=== PATIENT | female | born 1935 | race Caucasian/White ===

== ENCOUNTER → 2016-12-12 | Day surgery (SDC) | payer MEDICARE, OTHER ==
[~2016-12-12] MED LIST: Lactated Ringers 1,000 ML IV SCH; Lidocaine 1% 2 ML SDV ONE; Lidocaine 1%/Sod Bicarbonate in NS 8.4% 1 ML Syringe IV PRN; Propofol 200 MG/20 ML SDV ONE; Sodium Chloride 0.9% 10 ML Syringe FLUSH PRN
--- NOTE | 2016-12-12 11:24 | PCM.PREANE ---
Preanesthetic Assessment - ANESTHESIA/TRANSFUSION/FAMILY HX Anesthesia/Transfusion History: Prior Anesthesia (no prob), Prior Transfusion Family History of Anesthesia Reaction: No - REVIEW OF SYSTEMS Constitutional: Reports: no symptoms HAND ALTERATIONS TAILOR: Reports: no symptoms Respiratory: Reports: cough (due to phlegm) Cardiovascular: Reports: blood pressure problem, palpitations (on occasion- has been checked out) GI: Reports: no symptoms Other: Reports: sinus problem, neck pain (arthritis) - PHYSICAL ASSESSMENT O2 Sat by Pulse Oximetry: 98 RR: 16 Vital Signs: Last Vital Signs Temp 98.2 F 12/12/16 11:00 Pulse 63 12/12/16 11:00 Resp 16 12/12/16 11:00 BP 174/80 H 12/12/16 11:00 Pulse Ox 98 12/12/16 11:00 Height: 5 ft 3 in Weight: 51.71 kg NPO Status Date: 12/11/16 NPO Status Time: 18:00 ASA Class: 2 Mental Status: alert & oriented x3 Airway Class: Mallampati = 1 Dentition: Reports: normal dentition Thyro-Mental Finger Breadths: 3 Mouth Opening Finger Breadths: 3 ROM/Head Extension: full Respiratory Status: lungs clear to auscultation bilaterally Cardiovascular Status: regular rate & rhythm, normal S1, S2, no murmur, blood pressure WNL - ALLERGIES Allergies/Adverse Reactions: Allergies Allergy/AdvReac Type Severity Reaction Status Date / Time tramadol Allergy Severe Vomiting Verified 08/19/14 14:50 lisinopril Allergy Intermediate Cough Verified 08/19/14 14:50 - BLOOD Blood Available: No - ANESTHESIA PLAN Medication Ordered: Betablocker Preop Beta Deny: Yes Beta Deny: Metoprolol Beta-Deny Last Dose Date: 12/12/16 Beta-Deny Last Dose Time: 08:30 Anesthesia Type Planned: MAC - ACKNOWLEDGEMENTS Pt an appropriate candidate for the planned anesthesia: Yes Alternatives and risks of anesthesia discussed w pt/guardian: Yes Pt/Guardian understands and agree with anesthesia plan: Yes PreAnesthesia Questionnaire Cardiovascular History: Reports: High cholesterol, Hypertension, Other (see below) Other Cardiovascular History: palpitations Gastrointestinal History: Reports: GERD, Irritable bowel syndrome, Other (see below) Other Gastrointestinal History: barretts esophagus Oncologic (Cancer) History: Reports: Basal cell carcinoma, Other (see below) Other Oncologic History: basal cell on nose - Past Surgical History HEENT Surgical History: Reports: Cataract surgery GI Surgical History: Reports: EGD Musculoskeletal Surgical History: Reports: Hip replacement - History Comment History Comment: has headache today because she said she d idn't have cofffee today - SUBSTANCE USE Smoking Status *Q: Never Smoker Tobacco Use Within Last Twelve Months: No Second Hand Smoke Exposure: No Days Per Week of Alcohol Use: 0 (wine occasionally) Recreational Drug Use History: No - HOME MEDS Home Medications: Home Meds Aspirin [Adult Low Dose Aspirin EC] 81 mg PO DAILY 05/09/14 [History] Hydrochlorothiazide [Microzide] 0 mg PO DAILY 05/09/14 [History] Losartan [Cozaar] 50 mg PO DAILY 05/09/14 [History] Metoprolol Succinate [Toprol XL] 100 mg PO BID 05/09/14 [History] Potassium Citrate [Potassium Citrate ER] 10 meq PO DAILY 05/09/14 [History] Lutein/Minerals/Vit A,C & E [Ocuvite] 1 tab PO DAILY 04/05/15 [History] Magnesium Oxide 250 mg PO DAILY 12/11/16 [History] - CURRENT (IN HOUSE) MEDS Current Meds: Current Medications Lactated Ringer's (Ringers, Lactated) 1,000 mls @ 125 mls/hr IV ASDIRECTED FRANSICO Stop: 12/12/16 23:00 Lidocaine/Sodium Bicarbonate (Buffered Lidocaine 1% In Ns 8.4%) 0.25 ml IV ONETIME PRN PRN Reason: Prior to IV Start Stop: 12/12/16 18:00 Sodium Chloride (Saline Flush) 10 ml FLUSH ASDIRECTED PRN PRN Reason: Keep Vein Open Stop: 12/12/16 18:00
--- NOTE | 2016-12-12 14:39 | PCM48HPAN ---
Post Anesthesia Note - EVALUATION WITHIN 48HRS OF ANESTHETIC Vital Signs in Normal Range: Yes Patient Participated in Evaluation: Yes Respiratory Function Stable: Yes Airway Patent: Yes Cardiovascular Function Stable: Yes Hydration Status Stable: Yes Pain Control Satisfactory: Yes Nausea and Vomiting Control Satisfactory: Yes Mental Status Recovered: Yes
[2016-12-12 14:40] VITALS: BP 147/74
--- NOTE | 2016-12-12 14:45 | PCM.OPNOTE ---
- General Post-Op/Procedure Note Date of Surgery/Procedure: 12/12/16 Operative Procedure(s): 1. Diagnostic EGD with cold forceps biopsy. 2. Diagnostic colonoscopy and cold snare polypectomy Pre Op Diagnosis: Change in bowel habits, history of Beasley's esophagus, reflux , heartburn, smaller caliber stools, change in bowel pattern Post-Op Diagnosis: Diverticulosis, Grade I internal hemorrhoids, Ascending colon polyp Anesthesia Technique: MAC Primary Surgeon: Sara Mclaughlin Anesthesia Provider: Cristela Nair Pathology: 1. Small bowel biopsy 2. Antral biopsy 3. Distal esophageal biopsy 4. Ascending colon polyp Fluid Replacement, Intraop: 600 (mL crystalloid ) EBL in mLs: 1 Complications: None Condition: Good Free Text/Narrative:: INDICATION FOR PROCEDURE: The patient is an 81-year-old woman who was referred to me by Dr. David Neff for evaluation for history of Beasley's esophagus, reflux, heartburn, change in bowel pattern, RUQ pain, gallbladder polyps, cholesterosis,. Performing a colonoscopy and EGD and the associated risks of the procedures had been discussed with the patient. The patient found these risks acceptable and agreed to proceed. DESCRIPTION OF PROCEDURE: The patient was taken to the operating room and placed in the left lateral decubitus position. After induction of adequate sedation, a bite block was placed. A standard Olympus gastroscope was inserted into the oropharynx and guided down the esophagus without difficulty. The gastroesophageal junction was appreciated at 40 cm from the teeth. There was no evidence of stricture or esophageal ulcerations. The scope was advanced into the stomach, and there was no obvious abnormality. The scope was passed into the proximal jejunum and the duodenum which were unremarkable. There were no petechiae or ulcerations. The proximal jejunum was grossly normal in appearance. Multiple cold forceps biopsies were obtained of the proximal jejunum and duodenum. The scope was withdrawn into the antrum, and additional cold forceps biopsies were obtained. The remainder of the gastric body was examined, and there were no additional findings. The scope was retroflexed, and there was no evidence of hiatal hernia. The scope was straightened and withdrawn to the GE junction. Additional cold forceps biopsies were obtained of the distal esophagus. The scope was withdrawn through the remainder of the esophagus and no further abnormalities were noted. The posterior oropharynx was grossly normal in appearance. The scope was fully withdrawn and attention was then turned to the colonoscopy. A digital rectal exam was performed which was unremarkable. A pediatric Olympus colonoscope was inserted into the rectum and guided under direct visualization to the appendiceal orifice and ileocecal valve. The scope was then slowly withdrawn through the colon. The quality of the prep was good. There was no evidence of angiodysplasias. There was a small sessile ascending colon polyp that was noted. This was removed in its entirety using cold snare and retrieved. There were a few scattered diverticulum in the sigmoid colon. The scope was withdrawn into the rectum and retroflexed. There was very minimal enlargement of the internal hemorrhoids, Grade I. The scope was straightened, the colon was desufflated, and the scope was withdrawn. The patient was awakened from sedation and transferred to the recovery room in stable condition having tolerated the procedure well. POSTOPERATIVE PLAN: I discussed with the patient's , Ac Espinal, my intraoperative findings and recommendations. The patient will follow up in approximately 7-10 days to discuss pathology and how their symptoms are progressing. The patient is to continue Prilosec 20mg twice daily. I have asked the patient to follow a GERD\gastritis diet. The patient is to call with any worsening of symptoms or questions prior to the appointment. The patient did mention some burning pain in the left lower cautery. I would recommend consideration a CT the abdomen pelvis, as she denies any left lower quadrant bulge. Also further testing of her gallbladder may be warranted with her history of gallbladder polyps.
== END | disposition home or self-care (01) ==
LOC: JD.SDS 10:55
PROVIDERS: ATTEND Surgery
DX: D12.2 Benign neoplasm of ascending colon (principal); K64.0 First degree hemorrhoids; K57.30 Diverticulosis of large intestine without perforation or abscess without bleeding; K22.70 Barrett's esophagus without dysplasia; K21.9 Gastro-esophageal reflux disease without esophagitis; I10 Essential (primary) hypertension; E78.5 Hyperlipidemia, unspecified; Z79.82 Long term (current) use of aspirin; Z79.899 Other long term (current) drug therapy; Z88.8 Allergy status to other drugs, medicaments and biological substances; E78.00 Pure hypercholesterolemia, unspecified
CPT/HCPCS: 43239; 45385; 88305; J7120; 00810; J2704

== ENCOUNTER 2018-10-14 18:51 | Emergency (ER) | payer MEDICARE, OTHER ==
[2018-10-14] MEDS ORDERED: Alum Hydrox/Mag Hydrox/Simeth 30 ML, Lidocaine 2% 15 ML PO ONE ×2 (19:48)
--- NOTE | 2018-10-14 20:09 | CR ---
Chest: 2 views of the chest were obtained. Comparison: Prior chest x-ray of 08/19/14. Heart size appears within normal limits. Tortuous thoracic aorta is seen. Lungs are clear without acute parenchymal change. Diaphragms are slightly flattened on the lateral view suggesting an element of emphysematous change. Degenerative endplate spurring is noted within the mid and lower thoracic spine. Scoliosis is also present. Impression: 1. Emphysematous change. Nothing acute is seen on 2 view chest x-ray. Other incidental findings. Diagnostic code #2
[2018-10-14 20:51] VITALS: BP 181/97
--- NOTE | 2018-10-14 22:17 | ER ---
REASON FOR EMERGENCY ROOM VISIT: Epigastric and chest pain. HISTORY OF PRESENT ILLNESS: This 83-year-old woman has a history of hiatal hernia and gastroesophageal reflux disease. When asked what is troubling her, her response is I am having a "hiatal hernia attack." She describes this as some substernal burning, but also with tightness in the chest and epigastric burning. She had no diaphoresis or nausea. Her headache was a frontal headache bilaterally, but this has resolved. She has had coughing off and on, but this is a chronic problem and that has not changed. She denies any fever or chills. She has not had any pain down her arm or up her neck or jaw. She has no prior history of cardiac disease. She admits that she missed her last dose of antihypertensives today and she has been quite anxious about that. PAST MEDICAL HISTORY: Significant for, 1. Gastroesophageal reflux disease and hiatal hernia. 2. Colon polyps. 3. Diverticulosis. 4. Hypertension. 5. Total hip. ALLERGIES: Tramadol and lisinopril. CURRENT MEDICATIONS: Please review electronic medical record. They include potassium citrate, metoprolol-XL, magnesium oxide, vitamins, losartan, hydrochlorothiazide, and aspirin. REVIEW OF SYSTEMS: Pertinent positives and negatives as listed in the HPI. She also complains of left knee arthritis. PHYSICAL EXAMINATION: GENERAL: She is somewhat jocular, but in no acute distress. Perhaps, she is a bit anxious. VITAL SIGNS: Her blood pressure 189/97, O2 sats 100%, respiratory rate 18, heart rate 77. HEENT: Head is normocephalic. No temporal artery tenderness. No conjunctivitis. No scleral icterus. Oropharynx is normal. NECK: Supple. No JVD. No bruits. No adenopathy. CHEST: Clear to auscultation with equal breath sounds bilaterally, and no wheezes, rhonchi, or rales. CARDIAC: Regular rate without murmur or rub. ABDOMEN: She has mild tenderness to deep palpation in the epigastrium, otherwise no tenderness. No guarding, rebound, or percussion tenderness. No hepatosplenomegaly or other masses. EXTREMITIES: Normal pulses. No edema. NEUROLOGIC: She moves all 4 extremities equally well. Cranial nerves 2 through 12 are intact. Muscle strength, bulk, and tone is normal and symmetrical bilaterally in the upper and lower extremities. Sensation is normal to crude touch in both lower extremities. LABORATORY DATA: A CBC shows that her white count is normal at 6,300, her hemoglobin is 13.9. Her CMP is normal except for a BUN of 26. Her troponin is less than 0.017. A chest x-ray shows no acute change or infiltrates, and perhaps some suggestion of COPD. EKG shows no acute changes. FURTHER EMERGENCY ROOM COURSE: She was given a GI cocktail of Maalox and viscous lidocaine, and her symptoms resolved. IMPRESSION: Most likely symptoms appear to be due to gastroesophageal reflux. She laments the fact that Prilosec has not worked for her in the past, but ranitidine has, and she will resume taking that. I stressed the importance of followup with her primary care provider, Dr. Neff. Her blood pressure is elevated and she needs to make sure she does not miss any more of her antihypertensive medications. She feels quite relieved now and she is reassured of the above findings. All questions were answered. ALEXUS /[id number]
--- NOTE | 2018-11-10 07:31 | ER ---
ADDENDUM: IMPRESSION: Epigastric and substernal pain secondary to gastroesophageal reflux. MMCARLOS /[id number]
== END 2018-10-14 20:45 | disposition home or self-care (01) ==
LOC: JD.ED 18:51
DX: K21.9 Gastro-esophageal reflux disease without esophagitis (principal); I10 Essential (primary) hypertension; Z88.5 Allergy status to narcotic agent; Z88.8 Allergy status to other drugs, medicaments and biological substances
CPT/HCPCS: 36415; 71046; 80053; 84484; 85025; 93005; 99285; A9270; 99282

== ENCOUNTER 2022-08-20 22:51 | Emergency (ER) | payer MEDICARE, OTHER ==
[2022-08-20] MEDS ORDERED: Aspirin 81 MG Tab.Chew PO ONE (23:34)
[2022-08-20] MEDS ORDERED: Sodium Chloride 0.9% 10 ML Syringe FLUSH PRN (23:34)
[2022-08-20] MEDS ORDERED: Famotidine 20 MG/2 ML SDV IVPUSH ONE (23:35)
[2022-08-20] MEDS ORDERED: Labetalol 100 MG/20 ML MDV IVPUSH ONE (23:36)
[2022-08-21 01:55] VITALS: BP 163/74; PULSE 65
== END 2022-08-21 00:15 | disposition home or self-care (01) ==
LOC: JD.ED 22:51
DX: R07.89 Other chest pain (principal); I10 Essential (primary) hypertension; R42 Dizziness and giddiness; Z88.8 Allergy status to other drugs, medicaments and biological substances; Z79.82 Long term (current) use of aspirin; Z79.899 Other long term (current) drug therapy
CPT/HCPCS: 36415; 80053; 84484; 85025; 93005; 96374; 96375; 99285; A9270; J3490; 71045-26

== ENCOUNTER 2023-09-21 19:28 | Observation (INO) | payer MEDICARE, OTHER ==
[2023-09-21] MEDS ORDERED: Tenecteplase 50 MG Kit IV ONE (19:51)
[2023-09-21] MEDS ORDERED: Sodium Chloride 0.9% 10 ML Syringe FLUSH PRN (19:51)
[2023-09-21] MEDS ORDERED: Heparin Sodium 5,000 Units/ML Vial IVPUSH ONE (19:52)
[2023-09-21] MEDS ORDERED: Aspirin 81 MG Tab.Chew PO ONE (19:55)
[2023-09-21] MEDS ORDERED: Heparin Sodium/D5W 25,000 UNITS/500 ML BAG IV SCH (20:00)
[2023-09-21 20:15] LABS: BASOPHILS PERCENT AUTO 0.6 % (0.0-1.0); EOSINOPHILS ABSOLUTE AUTO 0.1 K/mm3 (0.0-0.4); EOSINOPHILS PERCENT AUTO 1.1 % (0.0-6.0); HEMATOCRIT 36.1 % (37.0-47.0); HEMOGLOBIN 12.2 gm/dl (12.0-16.0); IMMATURE GRAN ABSOLUTE AUTO 0.01 K/mm3 (0.00-0.05); IMMATURE GRAN PERCENT AUTO 0.2 % (0.0-0.4); LYMPHOCYTES ABSOLUTE AUTO 1.2 K/mm3 (1.0-4.8); LYMPHOCYTES PERCENT AUTO 22.7 % (24.0-44.0); MEAN CORPUSCULAR HEMOGLOBIN 30.6 pg (28.0-32.0); MEAN CORPUSCULAR HGB CONC 33.8 g/dl (32.0-36.0); MEAN CORPUSCULAR VOLUME 90.5 fl (83.0-99.0); MEAN PLATELET VOLUME 9.1 fl (9.4-12.3); MONOCYTES ABSOLUTE AUTO 0.7 K/mm3 (0.0-0.8); MONOCYTES PERCENT AUTO 14.1 % (0.0-8.0); NEUTROPHILS ABSOLUTE AUTO 3.2 K/mm3 (1.8-7.7); NEUTROPHILS PERCENT AUTO 61.3 % (41.0-71.0); PLATELET COUNT,PLT 227 K/mm3 (150-400); RED BLOOD CELL COUNT 3.99 M/mm3 (4.10-5.30); WHITE BLOOD CELL COUNT,WBC 5.24 K/mm3 (3.9-11.3)
[2023-09-21 20:41] LABS: A/G RATIO 0.9 (1-2); ALANINE AMINOTRANSFERASE,ALT 16 U/L (14-59); ALBUMIN 3.2 g/dl (3.4-5.0); ALKALINE PHOSPHATASE 83 U/L (46-116); ANION GAP 7.3 (5-15); ASPARTATE AMNIOTRANSFERASE,AST 14 U/L (15-37); BILIRUBIN TOTAL 0.3 mg/dL (0.2-1.0); BLOOD UREA NITROGEN,BUN 16 mg/dL (7-18); BUN/CREATININE RATIO 22.9 (14-18); CALCIUM 9.4 mg/dL (8.5-10.1); CARBON DIOXIDE,CO2 30 mEq/L (21-32); CHLORIDE,CL 102 mEq/L (98-107); CREATININE 0.7 mg/dL (0.55-1.02); ESTIMATED GFR 83 mL/min (>60); GLUCOSE RANDOM 116 mg/dL (70-99); POTASSIUM,K 3.3 mEq/L (3.5-5.1); PROTEIN TOTAL,TP 6.9 g/dl (6.4-8.2); SODIUM,NA 136 mEq/L (136-145)
[2023-09-21 20:48] LABS: TROPONIN I HIGH SENSITIVITY 86 pg/mL (<=51)
[2023-09-22] MEDS ORDERED: oxyCODONE 5 MG Tab PO PRN (08:31)
[2023-09-22] MEDS ORDERED: Aspirin 81 MG Tab.EC PO SCH (09:00)
[2023-09-22] MEDS ORDERED: Docusate Sodium 100 MG Cap PO PRN (09:00)
[2023-09-22] MEDS ORDERED: hydrALAZINE 20 MG/ML SDV IVPUSH ONE (09:44)
[2023-09-22] MEDS: Magnesium Oxide 400 MG Tab PO SCH (10:04)
[2023-09-22] MEDS: Metoprolol Succinate 50 MG Tab.ER PO SCH ×2 (10:04→20:02)
[2023-09-22] MEDS: Losartan 50 MG Tab PO SCH (10:06)
[2023-09-22] MEDS: Potassium Chloride 10 MEQ Tab.ER PO SCH (10:07)
[2023-09-22] MEDS: Hydrochlorothiazide 12.5 MG Cap PO SCH (10:08)
[2023-09-22] MEDS: Multivitamins with Minerals/Folic Acid/Lutein/Zeaxanth Tab PO SCH (10:18)
[2023-09-22] MEDS ORDERED: Calcium Carbonate 500 MG Tab.Chew PO PRN (11:11)
[2023-09-22] MEDS: Acetaminophen 325 MG Tab PO PRN (20:04)
[2023-09-23] MEDS: Acetaminophen 325 MG Tab PO PRN (01:38)
[2023-09-23 05:48] LABS: BASOPHILS PERCENT AUTO 0.3 % (0.0-1.0); EOSINOPHILS ABSOLUTE AUTO 0.1 K/mm3 (0.0-0.4); EOSINOPHILS PERCENT AUTO 1.7 % (0.0-6.0); HEMATOCRIT 37.1 % (37.0-47.0); HEMOGLOBIN 12.7 gm/dl (12.0-16.0); IMMATURE GRAN ABSOLUTE AUTO 0.02 K/mm3 (0.00-0.05); IMMATURE GRAN PERCENT AUTO 0.3 % (0.0-0.4); LYMPHOCYTES ABSOLUTE AUTO 1.2 K/mm3 (1.0-4.8); LYMPHOCYTES PERCENT AUTO 18.6 % (24.0-44.0); MEAN CORPUSCULAR HEMOGLOBIN 30.3 pg (28.0-32.0); MEAN CORPUSCULAR HGB CONC 34.2 g/dl (32.0-36.0); MEAN CORPUSCULAR VOLUME 88.5 fl (83.0-99.0); MEAN PLATELET VOLUME 9.7 fl (9.4-12.3); MONOCYTES ABSOLUTE AUTO 1.1 K/mm3 (0.0-0.8); NEUTROPHILS PERCENT AUTO 62.1 % (41.0-71.0); PLATELET COUNT,PLT 226 K/mm3 (150-400); RED BLOOD CELL COUNT 4.19 M/mm3 (4.10-5.30); WHITE BLOOD CELL COUNT,WBC 6.36 K/mm3 (3.9-11.3)
[2023-09-23 05:56] LABS: A/G RATIO 0.8 (1-2); ALBUMIN 3.1 g/dl (3.4-5.0); ANION GAP 7.7 (5-15); BILIRUBIN TOTAL 0.8 mg/dL (0.2-1.0); BUN/CREATININE RATIO 18.6 (14-18); CALCIUM 9.5 mg/dL (8.5-10.1); CREATININE 0.7 mg/dL (0.55-1.02); EST CRCL DRUG DOSING (CG) 43.76 mL/min; POTASSIUM,K 3.7 mEq/L (3.5-5.1); PROTEIN TOTAL,TP 6.9 g/dl (6.4-8.2)
[2023-09-23] MEDS ORDERED: Metoprolol Succinate 50 MG Tab.ER PO SCH (09:00)
[2023-09-23] MEDS ORDERED: atorvaSTATin 40 MG Tab PO SCH (09:00)
[2023-09-23] MEDS: Hydrochlorothiazide 12.5 MG Cap PO SCH (09:15)
[2023-09-23] MEDS: Magnesium Oxide 400 MG Tab PO SCH (09:17)
[2023-09-23] MEDS: Multivitamins with Minerals/Folic Acid/Lutein/Zeaxanth Tab PO SCH (09:17)
[2023-09-23] MEDS: Potassium Chloride 10 MEQ Tab.ER PO SCH (09:18)
[2023-09-23] MEDS: Losartan 50 MG Tab PO SCH (09:18)
[2023-09-23 13:02] LABS: TSH 1.058 uIU/mL (0.358-3.74)
[2023-09-23 15:29] VITALS: BP 131/83; PULSE 80
[2023-09-23] MEDS ORDERED: Metoprolol Tartrate 100 MG Tab PO SCH (21:00)
== END 2023-09-23 15:14 | disposition home or self-care (01) ==
LOC: JD.ED 19:28 → JD.MS 09-22 07:15 → JD.ICU 09-22 07:16
PROVIDERS: ADMIT Internal Medicine; ATTEND Internal Medicine
DX: I21.3 ST elevation (STEMI) myocardial infarction of unspecified site (principal); I10 Essential (primary) hypertension; K21.9 Gastro-esophageal reflux disease without esophagitis; K22.719 Barrett's esophagus with dysplasia, unspecified; K58.9 Irritable bowel syndrome, unspecified; E78.00 Pure hypercholesterolemia, unspecified; Z79.82 Long term (current) use of aspirin; Z79.899 Other long term (current) drug therapy; Z88.8 Allergy status to other drugs, medicaments and biological substances
CPT/HCPCS: 36415; 71045; 80053; 84443; 84484; 85025; 93005; 93246; 93307; 96365; 96375; 97161; 99285; A9270; G0378; J0360; J1644; J3101; J3490; 93010

== ENCOUNTER 2024-04-25 05:03 | Emergency (ER) | payer MEDICARE, OTHER ==
[2024-04-25 05:33] LABS: BASOPHILS ABSOLUTE AUTO 0.1 K/mm3 (0.0-0.2); BASOPHILS PERCENT AUTO 0.8 % (0.0-1.0); EOSINOPHILS ABSOLUTE AUTO 0.3 K/mm3 (0.0-0.4); EOSINOPHILS PERCENT AUTO 5.5 % (0.0-6.0); HEMATOCRIT 37.7 % (37.0-47.0); HEMOGLOBIN 12.6 gm/dl (12.0-16.0); IMMATURE GRAN ABSOLUTE AUTO 0.02 K/mm3 (0.00-0.05); IMMATURE GRAN PERCENT AUTO 0.3 % (0.0-0.4); LYMPHOCYTES ABSOLUTE AUTO 1.2 K/mm3 (1.0-4.8); LYMPHOCYTES PERCENT AUTO 18.6 % (24.0-44.0); MEAN CORPUSCULAR HEMOGLOBIN 29.6 pg (28.0-32.0); MEAN CORPUSCULAR HGB CONC 33.4 g/dl (32.0-36.0); MEAN CORPUSCULAR VOLUME 88.5 fl (83.0-99.0); MEAN PLATELET VOLUME 9.6 fl (9.4-12.3); MONOCYTES ABSOLUTE AUTO 0.8 K/mm3 (0.0-0.8); MONOCYTES PERCENT AUTO 13.2 % (0.0-8.0); NEUTROPHILS ABSOLUTE AUTO 3.8 K/mm3 (1.8-7.7); NEUTROPHILS PERCENT AUTO 61.6 % (41.0-71.0); PLATELET COUNT,PLT 219 K/mm3 (150-400); RED BLOOD CELL COUNT 4.26 M/mm3 (4.10-5.30); WHITE BLOOD CELL COUNT,WBC 6.23 K/mm3 (3.9-11.3)
[2024-04-25 05:49] LABS: A/G RATIO 0.9 (1-2); ALANINE AMINOTRANSFERASE,ALT 23 U/L (14-59); ALBUMIN 3.3 g/dl (3.4-5.0); ALKALINE PHOSPHATASE 87 U/L (46-116); ANION GAP 11.1 (5-15); ASPARTATE AMNIOTRANSFERASE,AST 17 U/L (15-37); BILIRUBIN TOTAL 0.8 mg/dL (0.2-1.0); BLOOD UREA NITROGEN,BUN 15 mg/dL (7-18); BUN/CREATININE RATIO 21.4 (14-18); CALCIUM 9.1 mg/dL (8.5-10.1); CARBON DIOXIDE,CO2 28 mEq/L (21-32); CHLORIDE,CL 100 mEq/L (98-107); CREATININE 0.7 mg/dL (0.55-1.02); ESTIMATED GFR 83 mL/min (>60); GLUCOSE RANDOM 124 mg/dL (70-99); MAGNESIUM 1.9 mg/dL (1.8-2.4); POTASSIUM,K 3.1 mEq/L (3.5-5.1); PROTEIN TOTAL,TP 7.2 g/dl (6.4-8.2); SODIUM,NA 136 mEq/L (136-145); T4 FREE 1.32 ng/dL (0.76-1.46); TROPONIN I HIGH SENSITIVITY 10 pg/mL (<=51)
[2024-04-25] MEDS: Sodium Chloride 0.9% 100 ML IV SCH (06:36)
[2024-04-25] MEDS: Iopamidol 755 Mg/ML 100 ML Bottle IVPUSH ONE (06:36)
[2024-04-25] MEDS: Sodium Chloride 0.9% 10 ML Syringe FLUSH ONE (06:36)
[2024-04-25 06:56] LABS: APPEARANCE,URINE CLEAR (Clear); BILIRUBIN,URINE NEGATIVE (Negative); COLOR,URINE YELLOW (Yellow); GLUCOSE,URINE NEGATIVE (Negative); KETONES,URINE NEGATIVE (Negative); LEUKOCYTE ESTERASE,URINE TRACE (Negative); NITRITE,URINE NEGATIVE (Negative); OCCULT BLOOD,URINE TRACE-INTACT (Negative); PH,URINE 6.5 (5.0-8.0); PROTEIN,URINE NEGATIVE (Negative)
[2024-04-25] MEDS: Potassium Chloride 20 MEQ Tab.ER PO ONE (07:13)
[2024-04-25 07:14] LABS: BACTERIA,URINE FEW /hpf (FEW); MUCUS,URINE RARE /hpf (FEW); RBC,URINE 0-5 /hpf (0-5); SQUAMOUS EPITHELIAL CELLS,UR 0-5 /hpf (0-5); WBC,URINE 0-5 /hpf (0-5)
[2024-04-25] MEDS ORDERED: Apixaban 5 MG Tab PO ONE (07:17)
[2024-04-25 07:58] VITALS: BP 172/76; PULSE 68
== END 2024-04-25 07:55 | disposition home or self-care (01) ==
LOC: JD.ED 05:03
DX: I48.91 Unspecified atrial fibrillation (principal); I10 Essential (primary) hypertension; E78.00 Pure hypercholesterolemia, unspecified; Z79.899 Other long term (current) drug therapy; Z86.79 Personal history of other diseases of the circulatory system; Z79.82 Long term (current) use of aspirin; Z88.5 Allergy status to narcotic agent; Z88.8 Allergy status to other drugs, medicaments and biological substances
CPT/HCPCS: 36415; 71046; 71275; 80053; 81001; 83735; 84439; 84443; 84484; 85025; 85379; 86140; 87086; 93005; 99285; A9270; J3490; Q9967

== ENCOUNTER 2024-12-01 07:23 | Inpatient (IN) | payer MEDICARE, OTHER ==
[2024-12-01] MEDS ORDERED: Sodium Chloride 0.9% 10 ML Syringe FLUSH PRN ×2 (07:40→10:24)
[2024-12-01] MEDS: Sodium Chloride 0.9% 500 ML IV SCH ×2 (07:50→16:00)
[2024-12-01] MEDS: Acetaminophen 325 MG Tab PO ONE (07:50)
[2024-12-01] MEDS: Diltiazem 25 MG/5 ML SDV IVPUSH ONE ×3 (08:08→12:07)
[2024-12-01 08:09] LABS: BASOPHILS PERCENT AUTO 0.2 % (0.0-1.0); EOSINOPHILS PERCENT AUTO 0.3 % (0.0-6.0); HEMATOCRIT 37.3 % (37.0-47.0); HEMOGLOBIN 12.4 gm/dl (12.0-16.0); IMMATURE GRAN ABSOLUTE AUTO 0.03 K/mm3 (0.00-0.05); IMMATURE GRAN PERCENT AUTO 0.3 % (0.0-0.4); LYMPHOCYTES ABSOLUTE AUTO 0.7 K/mm3 (1.0-4.8); MEAN CORPUSCULAR HEMOGLOBIN 30.2 pg (28.0-32.0); MEAN CORPUSCULAR HGB CONC 33.2 g/dl (32.0-36.0); MEAN CORPUSCULAR VOLUME 90.8 fl (83.0-99.0); MEAN PLATELET VOLUME 9.8 fl (9.4-12.3); MONOCYTES PERCENT AUTO 10.2 % (0.0-8.0); NEUTROPHILS ABSOLUTE AUTO 7.7 K/mm3 (1.8-7.7); PLATELET COUNT,PLT 227 K/mm3 (150-400); RED BLOOD CELL COUNT 4.11 M/mm3 (4.10-5.30); WHITE BLOOD CELL COUNT,WBC 9.35 K/mm3 (3.9-11.3)
[2024-12-01 08:33] LABS: A/G RATIO 0.9 (1-2); ALBUMIN 3.4 g/dl (3.4-5.0); ANION GAP 13.8 (5-15); BILIRUBIN TOTAL 1.2 mg/dL (0.2-1.0); BUN/CREATININE RATIO 24.3 (14-18); CALCIUM 9.4 mg/dL (8.5-10.1); CREATININE 0.7 mg/dL (0.55-1.02); EST CRCL DRUG DOSING (CG) 35.89 mL/min; POTASSIUM,K 3.8 mEq/L (3.5-5.1); PROTEIN TOTAL,TP 7.2 g/dl (6.4-8.2)
[2024-12-01 09:13] LABS: APPEARANCE,URINE CLEAR (Clear); BILIRUBIN,URINE NEGATIVE (Negative); COLOR,URINE YELLOW (Yellow); GLUCOSE,URINE NEGATIVE (Negative); KETONES,URINE NEGATIVE (Negative); LEUKOCYTE ESTERASE,URINE TRACE (Negative); NITRITE,URINE NEGATIVE (Negative); OCCULT BLOOD,URINE TRACE-LYSED (Negative); PROTEIN,URINE NEGATIVE (Negative)
[2024-12-01 09:36] LABS: BACTERIA,URINE MODERATE /hpf (FEW); MUCUS,URINE FEW /hpf (FEW); RBC,URINE 0-5 /hpf (0-5); SQUAMOUS EPITHELIAL CELLS,UR 0-5 /hpf (0-5); WBC,URINE 0-5 /hpf (0-5)
[2024-12-01] MEDS: Iopamidol 612 MG/ML 30 ML SDV IV ONE (10:39)
[2024-12-01] MEDS: Iopamidol 612 MG/ML 100 ML Bottle IVPUSH ONE (10:39)
[2024-12-01] MEDS: Furosemide 40 MG/4 ML VIAL IVPUSH ONE (14:20)
[2024-12-01] MEDS ORDERED: Ondansetron 4 MG/2 ML SDV IVPUSH PRN (15:45)
[2024-12-01] MEDS ORDERED: Atropine 0.4 MG/ML SDV IVPUSH PRN (17:42)
[2024-12-01] MEDS ORDERED: Sennosides/Docusate Sodium 50-8.6 MG Tab PO PRN (17:49)
[2024-12-01] MEDS: oxyCODONE 5 MG Tab PO PRN (21:42)
[2024-12-01] MEDS: Apixaban 2.5 MG Tab PO SCH (21:42)
[2024-12-01] MEDS: Melatonin 3 MG Tab PO PRN (21:42)
[2024-12-01] MEDS: Metoprolol Tartrate 5 MG/5 ML SDV IVPUSH ONE (23:24)
[2024-12-02] MEDS ORDERED: Atropine 0.1 MG/ML 10 ML Syringe IVPUSH PRN (07:23)
[2024-12-02 07:34] LABS: BASOPHILS PERCENT AUTO 0.4 % (0.0-1.0); EOSINOPHILS ABSOLUTE AUTO 0.1 K/mm3 (0.0-0.4); EOSINOPHILS PERCENT AUTO 1.1 % (0.0-6.0); HEMATOCRIT 35.1 % (37.0-47.0); HEMOGLOBIN 11.8 gm/dl (12.0-16.0); IMMATURE GRAN ABSOLUTE AUTO 0.01 K/mm3 (0.00-0.05); IMMATURE GRAN PERCENT AUTO 0.1 % (0.0-0.4); LYMPHOCYTES ABSOLUTE AUTO 0.6 K/mm3 (1.0-4.8); LYMPHOCYTES PERCENT AUTO 8.3 % (24.0-44.0); MEAN CORPUSCULAR HEMOGLOBIN 30.2 pg (28.0-32.0); MEAN CORPUSCULAR HGB CONC 33.6 g/dl (32.0-36.0); MEAN CORPUSCULAR VOLUME 89.8 fl (83.0-99.0); MEAN PLATELET VOLUME 9.9 fl (9.4-12.3); MONOCYTES PERCENT AUTO 13.5 % (0.0-8.0); NEUTROPHILS ABSOLUTE AUTO 5.8 K/mm3 (1.8-7.7); NEUTROPHILS PERCENT AUTO 76.6 % (41.0-71.0); PLATELET COUNT,PLT 213 K/mm3 (150-400); RED BLOOD CELL COUNT 3.91 M/mm3 (4.10-5.30); WHITE BLOOD CELL COUNT,WBC 7.55 K/mm3 (3.9-11.3)
[2024-12-02] MEDS: Ondansetron 4 MG/2 ML SDV IV PRN (07:37)
[2024-12-02 08:15] LABS: A/G RATIO 0.9 (1-2); ANION GAP 9.2 (5-15); BILIRUBIN TOTAL 0.8 mg/dL (0.2-1.0); BUN/CREATININE RATIO 18.3 (14-18); CALCIUM 8.7 mg/dL (8.5-10.1); CREATININE 0.6 mg/dL (0.55-1.02); EST CRCL DRUG DOSING (CG) 43.7 mL/min; MAGNESIUM 1.6 mg/dL (1.8-2.4); PHOSPHORUS 2.9 mg/dL (2.6-4.7); POTASSIUM,K 3.2 mEq/L (3.5-5.1); PROTEIN TOTAL,TP 6.5 g/dl (6.4-8.2); TSH 1.507 uIU/mL (0.358-3.74)
[2024-12-02] MEDS: Timolol Maleate 0.5% Ophth Soln 5 ML Bottle EYEBOTH SCH (08:50)
[2024-12-02] MEDS: ALPRAZolam 0.25 MG Tab PO PRN (08:50)
[2024-12-02] MEDS: atorvaSTATin 20 MG Tab PO SCH (08:51)
[2024-12-02] MEDS: Metoprolol Tartrate 100 MG Tab PO SCH (08:51)
[2024-12-02] MEDS: Magnesium Sulf/Wat 4 GM/50 mL 4 GM in Premix Bag 1 BAG IV ONE (09:02)
[2024-12-02] MEDS: Potassium Chloride 20 MEQ Tab.ER PO ONE (09:02)
[2024-12-02] MEDS: cefTRIAXone 1 GM Vial IVPUSH SCH (13:43)
[2024-12-02] MEDS: Potassium Phosphates 30 MMOLE in Sodium Chloride 0.9% 500 ML IV ONE (13:43)
[2024-12-02] MEDS ORDERED: Metoprolol Tartrate 5 MG/5 ML SDV IVPUSH PRN (15:28)
[2024-12-03 05:10] LABS: A/G RATIO 0.9 (1-2); ALBUMIN 2.8 g/dl (3.4-5.0); ANION GAP 12.3 (5-15); BILIRUBIN TOTAL 0.9 mg/dL (0.2-1.0); CALCIUM 8.5 mg/dL (8.5-10.1); CREATININE 0.6 mg/dL (0.55-1.02); EST CRCL DRUG DOSING (CG) 43.7 mL/min; MAGNESIUM 2.2 mg/dL (1.8-2.4); PHOSPHORUS 3.9 mg/dL (2.6-4.7); POTASSIUM,K 4.3 mEq/L (3.5-5.1); PROTEIN TOTAL,TP 5.9 g/dl (6.4-8.2)
[2024-12-03] MEDS: Acetaminophen 325 MG Tab PO PRN (17:03)
[2024-12-04 04:59] LABS: A/G RATIO 0.8 (1-2); ALBUMIN 2.9 g/dl (3.4-5.0); ANION GAP 13.2 (5-15); BILIRUBIN TOTAL 0.9 mg/dL (0.2-1.0); BUN/CREATININE RATIO 23.3 (14-18); CALCIUM 8.5 mg/dL (8.5-10.1); CREATININE 0.6 mg/dL (0.55-1.02); EST CRCL DRUG DOSING (CG) 44.75 mL/min; POTASSIUM,K 4.2 mEq/L (3.5-5.1); PROTEIN TOTAL,TP 6.5 g/dl (6.4-8.2)
[2024-12-04 13:37] VITALS: BP 137/119; PULSE 118
== END 2024-12-04 13:24 | disposition home or self-care (01) | DRG 308 ==
LOC: JD.ED 07:23 → JD.ICU 16:17
PROVIDERS: ADMIT Student in an Organized Health Care Education/Training Program; ATTEND Student in an Organized Health Care Education/Training Program
DX: I48.91 Unspecified atrial fibrillation (principal); I50.21 Acute systolic (congestive) heart failure; R18.8 Other ascites; N39.0 Urinary tract infection, site not specified; I11.0 Hypertensive heart disease with heart failure; H40.9 Unspecified glaucoma; Z66 Do not resuscitate; H26.9 Unspecified cataract; D32.0 Benign neoplasm of cerebral meninges; K58.9 Irritable bowel syndrome, unspecified; H54.7 Unspecified visual loss; E78.00 Pure hypercholesterolemia, unspecified; K21.9 Gastro-esophageal reflux disease without esophagitis; R39.11 Hesitancy of micturition; E87.6 Hypokalemia; E83.42 Hypomagnesemia; E83.39 Other disorders of phosphorus metabolism; Z79.01 Long term (current) use of anticoagulants; I25.2 Old myocardial infarction; Z88.8 Allergy status to other drugs, medicaments and biological substances; Z79.899 Other long term (current) drug therapy; Z79.02 Long term (current) use of antithrombotics/antiplatelets; Z86.16 Personal history of COVID-19; Z98.49 Cataract extraction status, unspecified eye; Z98.890 Other specified postprocedural states
CPT/HCPCS: 36415; 51798; 70450; 70450-26; 71045; 71045-26; 74177; 74177-26; 76705; 76705-26; 80053; 81001; 83690; 83735; 83880; 84100; 84443; 84484; 85025; 87086; 93005; 93306; 96361; 96374; 96375; 96376; 97110-GP; 97116-GP; 97161-GP; 97530-GP; 99285-25; A9270-GY; J0696; J1940; J2405; J3475; J3490; J7040; Q9967